=== PATIENT | male | born 1940 | race Caucasian/White ===

== ENCOUNTER 2020-09-11 08:50 | Emergency (ER) | payer OTHER, MEDICARE ==
[2020-09-11 09:04] VITALS: TEMP 98.3; BMI 25.8
[2020-09-11 11:04] VITALS: BP 128/64; PULSE 79
== END 2020-09-11 10:25 | disposition home or self-care (01) ==
LOC: FER 08:50
DX: R33.9 Retention of urine, unspecified (principal)
CPT/HCPCS: 81003; 81015; 87086; 87186; 99284-25

== ENCOUNTER 2020-09-15 04:43 | Emergency (ER) | payer OTHER, MEDICARE ==
[2020-09-15 04:49] VITALS: BP 143/67; PULSE 87; TEMP 98.2; BMI 25.1
== END 2020-09-15 05:39 | disposition home or self-care (01) ==
LOC: FER 04:43
DX: T83.018A Breakdown (mechanical) of other urinary catheter, initial encounter (principal)
CPT/HCPCS: 99283-25

== ENCOUNTER 2021-03-07 09:12 | Day surgery (SDC) | payer OTHER, MEDICARE ==
[2021-03-06 16:18] VITALS: BMI 25.8
[2021-03-07] MEDS ORDERED: CYCLOPENTOLATE HCL 1% OPHTH SOLN 2 ML BOTTLE ONE (09:43)
[2021-03-07] MEDS ORDERED: OFLOXACIN 0.3% OPHTHALMIC SOLUTION 5 ML BOTTLE ONE (09:43)
[2021-03-07] MEDS ORDERED: TROPICAMIDE 1% OPHTH SOLN 15 ML BOTTLE ONE (09:43)
[2021-03-07] MEDS ORDERED: PHENYLEPHRINE 2.5% OPHTH SOLN 15 ML BOTTLE ONE (09:43)
[2021-03-07] MEDS ORDERED: KETOROLAC TROMETHAMINE 0.5% EYE DROP 1 DROP DROPS ONE (09:43)
[2021-03-07] MEDS: CYCLOPENTOLATE HCL 1% OPHTH SOLN 2 ML BOTTLE OS SCH ×3 (10:10→10:20)
[2021-03-07] MEDS: KETOROLAC TROMETHAMINE 0.5% EYE DROP 1 DROP DROPS OS SCH ×3 (10:10→10:20)
[2021-03-07] MEDS: PHENYLEPHRINE 2.5% OPHTH SOLN 15 ML BOTTLE OS SCH ×3 (10:10→10:20)
[2021-03-07] MEDS: OFLOXACIN 0.3% OPHTHALMIC SOLUTION 5 ML BOTTLE OS SCH ×3 (10:10→10:20)
[2021-03-07] MEDS: TROPICAMIDE 1% OPHTH SOLN 15 ML BOTTLE OS SCH ×3 (10:10→10:20)
[2021-03-07] MEDS ORDERED: ACETAMINOPHEN 325 MG TABLET (FP) PO PRN (11:16)
[2021-03-07] MEDS ORDERED: BETAXOLOL HCL 0.25% OPHTHALMIC 10 ML DROPSBTL ONE (11:25)
[2021-03-07] MEDS ORDERED: BACITRACIN/POLYMYXIN OPH OINT 3.5 GM TUBE ONE (11:25)
[2021-03-07] MEDS ORDERED: TETRACAINE 0.5% OPHTH SOLN 2 ML BOTTLE ONE (11:25)
[2021-03-07] MEDS ORDERED: POVIDONE-IODINE 5% OPHTHALMIC PREP 30 ML SOLUTION ONE (11:25)
[2021-03-07] MEDS ORDERED: NEO/POLYMYX B SULF/DEXAMETH OPHTHALMIC 5ML BOTTLE ONE (11:25)
[2021-03-07] MEDS ORDERED: EPI-SHUGARCAINE (EPINEPHRINE 0.025% & LIDOCAINE-PF 0.75%) 4ML ONE (11:25)
[2021-03-07] MEDS ORDERED: PHENYLEPHRINE/KETOROLAC 4 ML VIAL IO ONE (11:27)
[2021-03-07] MEDS ORDERED: ACETAMINOPHEN INJECTION 100 ML IVPB ONE (11:30)
[2021-03-08 11:32] VITALS: TEMP 98
[2021-03-08 11:39] VITALS: BP 132/71; PULSE 83
== END 2021-03-07 13:25 | disposition home or self-care (01) ==
LOC: FASU 09:12
PROVIDERS: ATTEND Ophthalmology
PROC: 08RK3JZ Replacement of Left Lens with Synthetic Substitute, Percutaneous Approach (ICD-10-PCS; principal; 2021-03-07 11:53)
DX: H26.9 Unspecified cataract (principal)
CPT/HCPCS: J0131; J1097

== ENCOUNTER 2021-09-15 14:47 | Inpatient (IN) | payer OTHER, MEDICARE ==
[2021-09-15 15:13] VITALS: BMI 23.1
[2021-09-15] MEDS ORDERED: SODIUM CHLORIDE 0.9% 1000 ML INFUS.BAG IV ONE ×2 (15:58→17:08)
[2021-09-15] MEDS ORDERED: PIPERACILLIN/TAZOB 4.5 GM 4.5 GM in DEXTROSE 5%-WATER 100 ML IVPB ONE (16:16)
[2021-09-15] MEDS ORDERED: VANCOMYCIN 1 GM in D5W (PRE-DOCKED) 1,000 MG/250 ML IVPB ONE (16:16)
[2021-09-15] MEDS ORDERED: VANCOMYCIN 1 GRAM (PRE-DOCKED) 1,000 MG/250 ML BAG IVPB ONE ×2 (16:18→16:45)
[2021-09-15] MEDS ORDERED: PIPERACILLIN/TAZOB 4.5 GM 4.5 GM/100 ML BAG IVPB ONE (16:18)
[2021-09-15 16:20] LABS: EPI CELLS 0 /uL (0-25.1); HYALINE CASTS 1 /uL (0-3.1); URINE APPEARANCE TURBID; URINE BACTERIA 3549 /uL (0-1359); URINE BILIRUBIN NEGATIVE (NEGATIVE); URINE COLOR ORANGE; URINE GLUCOSE (UA) NEGATIVE (NEGATIVE); URINE KETONE NEGATIVE (NEGATIVE); URINE LEUK ESTERASE 3+ (NEGATIVE); URINE NITRITE NEGATIVE (NEGATIVE); URINE PROTEIN 3+ (NEGATIVE); URINE RBC 1570 /uL (0-23.9); URINE UROBILINOGEN 0.2 mg/dL (0.2-1.0); URINE WBC 1673 /uL (0-25.8)
[2021-09-15 16:28] LABS: VENOUS BASE EXCESS -7.6 mmol/L (-2-2); VENOUS O2 SATURATION 39.5 % (70-80); VENOUS PCO2 35.8 mmHg (38-52); VENOUS PH 7.312 (7.310-7.410)
[2021-09-15 16:29] LABS: BASO % 0.1 % (0-2.0); HEMATOCRIT 42.6 % (35.4-49); HEMOGLOBIN 14.1 GM/dL (11.7-16.9); LYMPH % 4.9 % (8-40); MCH 31.2 pg (25.7-33.7); MEAN CELL VOLUME 94.3 fl (80-96); MEAN PLT VOLUME 10.1 fl (7.5-11.1); MONO % 10.9 % (3.8-10.2); NEUT % 84.1 % (42.8-82.8); PLATELET COUNT 146 10^3/uL (134-434); RBC 4.52 M/mm3 (4.00-5.60); RDW 14.8 % (11.9-15.9); WHITE BLOOD COUNT 11.8 K/mm3 (4.0-10.0)
[2021-09-15 16:39] LABS: INR 1.13 (0.83-1.09)
[2021-09-15 16:42] LABS: ACTIVATED PTT 26.4 SECONDS (25.2-36.5)
[2021-09-15 16:56] LABS: CHLORIDE 108 mmol/L (98-107); SODIUM 140 mmol/L (136-145)
[2021-09-15 16:58] LABS: ALBUMIN 2.8 g/dl (3.4-5.0); GLUCOSE,RANDOM 171 mg/dL (74-106)
[2021-09-15 16:59] LABS: ANION GAP 14 MMOL/L (8-16); CALCIUM 8.8 mg/dL (8.5-10.1); CO2 18 mmol/L (21-32)
[2021-09-15 17:02] LABS: SGOT/AST 7 U/L (15-37)
[2021-09-15 17:03] LABS: CREATININE 5.8 mg/dL (0.55-1.3)
[2021-09-15 17:04] LABS: BILIRUBIN,TOTAL 0.7 mg/dL (0.2-1); TOT PROT 6.2 g/dl (6.4-8.2)
[2021-09-15 17:05] LABS: ALK PHOS 74 U/L (45-117)
[2021-09-15 17:06] LABS: LACTIC ACID 3.4 mmol/L (0.4-2.0)
[2021-09-15 17:11] LABS: BLOOD UREA NITROGEN 112.9 mg/dL (7-18); SGPT/ALT 18 U/L (13-61)
[2021-09-15 18:45] LABS: CHLORIDE 110 mmol/L (98-107); SODIUM 140 mmol/L (136-145)
[2021-09-15 18:46] LABS: ANION GAP 13 MMOL/L (8-16); CALCIUM 7.9 mg/dL (8.5-10.1); CO2 17 mmol/L (21-32)
[2021-09-15 18:47] LABS: GLUCOSE,RANDOM 191 mg/dL (74-106)
[2021-09-15 18:50] LABS: CREATININE 5.1 mg/dL (0.55-1.3)
[2021-09-15 19:01] LABS: LACTIC ACID 2.6 mmol/L (0.4-2.0)
[2021-09-15] MEDS ORDERED: DEXTROSE 5%-NORMAL SALINE 1,000 ML IV SCH (21:15)
[2021-09-15] MEDS ORDERED: HEPARIN NA (PORCINE) 5,000 UNITS/ML 1ML VIAL ONE (22:09)
[2021-09-15] MEDS: HEPARIN NA (PORCINE) 5,000 UNITS/ML 1ML VIAL SQ SCH (22:25)
[2021-09-15] MEDS ORDERED: ACETAMINOPHEN 1000 MG/100 ML BAG IVPB ONE (22:40)
[2021-09-16] MEDS ORDERED: ACETAMINOPHEN INJECTION 100 ML IVPB ONE (00:14)
[2021-09-16] MEDS ORDERED: SODIUM CHLORIDE 500 ML IV STA (00:47)
[2021-09-16] MEDS ORDERED: PIPERACILLIN/TAZOB 2.25 GM 2.25 GM/50 ML BAG IVPB ONE ×3 (02:12→14:05)
[2021-09-16] MEDS: PIPERACILLIN/TAZOB 2.25 GM 2.25 GM in DEXTROSE 5%-WATER - 50 ML IVPB SCH ×3 (02:23→17:41)
[2021-09-16] MEDS ORDERED: HEPARIN NA (PORCINE) 5,000 UNITS/ML 1ML VIAL ONE ×2 (06:09→14:05)
[2021-09-16] MEDS: HEPARIN NA (PORCINE) 5,000 UNITS/ML 1ML VIAL SQ SCH ×3 (06:19→23:34)
[2021-09-16] MEDS: LACTATED RINGERS SOLUTION 1,000 ML/1,000 ML INFUS.BAG IV SCH ×2 (08:51→23:55)
[2021-09-16 12:40] LABS: BASO % 0.1 % (0-2.0); HEMATOCRIT 36.4 % (35.4-49); HEMOGLOBIN 12.1 GM/dL (11.7-16.9); LYMPH % 6.8 % (8-40); MCH 31.7 pg (25.7-33.7); MCHC 33.3 g/dl (32.0-35.9); MEAN PLT VOLUME 10.2 fl (7.5-11.1); MONO % 7.2 % (3.8-10.2); NEUT % 85.9 % (42.8-82.8); PLATELET COUNT 88 10^3/uL (134-434); RBC 3.83 M/mm3 (4.00-5.60); RDW 14.5 % (11.9-15.9); WHITE BLOOD COUNT 11.6 K/mm3 (4.0-10.0)
[2021-09-16 13:00] LABS: BLOOD UREA NITROGEN 90.7 mg/dL (7-18)
[2021-09-16 13:02] LABS: CALCIUM 8.2 mg/dL (8.5-10.1)
[2021-09-16 13:03] LABS: MAGNESIUM 2.7 mg/dL (1.8-2.4)
[2021-09-16 13:07] LABS: PHOSPHOROUS 3.5 mg/dL (2.5-4.9)
[2021-09-17] MEDS ORDERED: DEXTROSE 5%-WATER - 50 ML IVPB ONE ×4 (03:31→17:50)
[2021-09-17] MEDS ORDERED: PIPERACILLIN/TAZOBACTAM 2.25 GM VIAL IVPB ONE ×3 (03:31→14:14)
[2021-09-17] MEDS: PIPERACILLIN/TAZOB 2.25 GM 2.25 GM in DEXTROSE 5%-WATER - 50 ML IVPB SCH ×2 (03:46→09:35)
[2021-09-17] MEDS: HEPARIN NA (PORCINE) 5,000 UNITS/ML 1ML VIAL SQ SCH ×3 (06:52→23:00)
[2021-09-17 08:32] LABS: EOS % 0.1 % (0-4.5); HEMATOCRIT 34.4 % (35.4-49); HEMOGLOBIN 11.8 GM/dL (11.7-16.9); LYMPH % 6.3 % (8-40); MCH 32.1 pg (25.7-33.7); MCHC 34.4 g/dl (32.0-35.9); MEAN CELL VOLUME 93.4 fl (80-96); MEAN PLT VOLUME 9.9 fl (7.5-11.1); MONO % 6.9 % (3.8-10.2); NEUT % 86.7 % (42.8-82.8); PLATELET COUNT 81 10^3/uL (134-434); RBC 3.68 M/mm3 (4.00-5.60); RDW 14.6 % (11.9-15.9); WHITE BLOOD COUNT 7.2 K/mm3 (4.0-10.0)
[2021-09-17 08:55] LABS: BLOOD UREA NITROGEN 73.7 mg/dL (7-18); CALCIUM 7.9 mg/dL (8.5-10.1); MAGNESIUM 2.6 mg/dL (1.8-2.4)
[2021-09-17 08:58] LABS: CREATININE 1.6 mg/dL (0.55-1.3); PHOSPHOROUS 2.8 mg/dL (2.5-4.9)
[2021-09-17 08:59] LABS: BILIRUBIN,TOTAL 0.8 mg/dL (0.2-1)
[2021-09-17 09:00] LABS: TOT PROT 4.8 g/dl (6.4-8.2)
[2021-09-17] MEDS: LACTATED RINGERS SOLUTION 1,000 ML/1,000 ML INFUS.BAG IV SCH (09:35)
[2021-09-17] MEDS ORDERED: VANCOMYCIN 1 GM in D5W (PRE-DOCKED) 1,000 MG/250 ML IVPB SCH (10:00)
[2021-09-17] MEDS ORDERED: POTASSIUM CHLORIDE TABS 20 MEQ TABLET.ER (FP) PO ONE (10:15)
[2021-09-17] MEDS: KCL 10 MEQ IVPB 10 MEQ/100 ML INFUS.BAG IVPB SCH ×3 (10:43→14:12)
[2021-09-17] MEDS: POTASSIUM CHLORIDE 20 MEQ in DEXTROSE 5%-WATER - 1,000 ML IV SCH (12:24)
[2021-09-17 13:33] LABS: CALCIUM 8.1 mg/dL (8.5-10.1)
[2021-09-17 13:34] LABS: BLOOD UREA NITROGEN 67.3 mg/dL (7-18)
[2021-09-17 13:38] LABS: CREATININE 1.5 mg/dL (0.55-1.3)
[2021-09-17] MEDS ORDERED: PIPERACILLIN/TAZOBACTAM 3.375 GM VIAL IVPB ONE (17:50)
[2021-09-17] MEDS: PIPERACILLIN/TAZOB 3.375 GM 3.375 GM in DEXTROSE 5%-WATER - 50 ML IVPB SCH (17:51)
[2021-09-18] MEDS ORDERED: PIPERACILLIN/TAZOBACTAM 3.375 GM VIAL IVPB ONE ×2 (01:04→08:57)
[2021-09-18] MEDS ORDERED: DEXTROSE 5%-WATER - 50 ML IVPB ONE ×2 (01:04→08:57)
[2021-09-18] MEDS: PIPERACILLIN/TAZOB 3.375 GM 3.375 GM in DEXTROSE 5%-WATER - 50 ML IVPB SCH ×2 (02:36→09:27)
[2021-09-18] MEDS: POTASSIUM CHLORIDE 20 MEQ in DEXTROSE 5%-WATER - 1,000 ML IV SCH ×3 (02:37→14:35)
[2021-09-18] MEDS: HEPARIN NA (PORCINE) 5,000 UNITS/ML 1ML VIAL SQ SCH ×3 (07:01→21:55)
[2021-09-18 09:08] LABS: HEMATOCRIT 38.1 % (35.4-49); HEMOGLOBIN 12.6 GM/dL (11.7-16.9); MCH 31.1 pg (25.7-33.7); MCHC 33.2 g/dl (32.0-35.9); MEAN CELL VOLUME 93.9 fl (80-96); PLATELET COUNT 92 10^3/uL (134-434); RBC 4.06 M/mm3 (4.00-5.60); RDW 14.6 % (11.9-15.9); WHITE BLOOD COUNT 8.6 K/mm3 (4.0-10.0)
[2021-09-18] MEDS: MULTIVITAMINS (DAILY MVI) TABLET (FP) PO SCH (09:27)
[2021-09-18 09:38] LABS: BLOOD UREA NITROGEN 56.3 mg/dL (7-18); CALCIUM 8.4 mg/dL (8.5-10.1)
[2021-09-18 09:39] LABS: ALBUMIN 2.2 g/dl (3.4-5.0); MAGNESIUM 2.7 mg/dL (1.8-2.4)
[2021-09-18 09:41] LABS: CREATININE 1.4 mg/dL (0.55-1.3); PHOSPHOROUS 1.9 mg/dL (2.5-4.9)
[2021-09-18 09:43] LABS: BILIRUBIN,TOTAL 0.7 mg/dL (0.2-1); TOT PROT 5.3 g/dl (6.4-8.2)
[2021-09-18] MEDS: POTASSIUM CHLORIDE 10 MEQ in DEXTROSE 5%-WATER - 1,000 ML IV SCH ×2 (14:34→22:38)
[2021-09-18] MEDS: NAPH,MB-DB/K PH,MBDB POWDER PACKET PO SCH ×2 (14:34→21:55)
[2021-09-18] MEDS ORDERED: CEFAZOLIN SODIUM 2 GM in DEXTROSE 5%-WATER - 50 ML IVPB SCH (18:00)
[2021-09-19] MEDS: POTASSIUM CHLORIDE 10 MEQ in DEXTROSE 5%-WATER - 1,000 ML IV SCH ×3 (01:37→17:58)
[2021-09-19] MEDS: CEFAZOLIN SODIUM 2 GM in DEXTROSE 5%-WATER - 50 ML IVPB SCH ×3 (01:38→17:27)
[2021-09-19] MEDS: HEPARIN NA (PORCINE) 5,000 UNITS/ML 1ML VIAL SQ SCH ×3 (05:16→21:16)
[2021-09-19] MEDS: NAPH,MB-DB/K PH,MBDB POWDER PACKET PO SCH ×3 (05:17→21:16)
[2021-09-19 08:37] LABS: HEMATOCRIT 37.8 % (35.4-49); HEMOGLOBIN 12.7 GM/dL (11.7-16.9); MCH 31.8 pg (25.7-33.7); MCHC 33.6 g/dl (32.0-35.9); MEAN CELL VOLUME 94.8 fl (80-96); MEAN PLT VOLUME 10.6 fl (7.5-11.1); PLATELET COUNT 87 10^3/uL (134-434); RBC 3.99 M/mm3 (4.00-5.60); RDW 14.4 % (11.9-15.9); WHITE BLOOD COUNT 9.3 K/mm3 (4.0-10.0)
[2021-09-19 09:02] LABS: ALBUMIN 2.2 g/dl (3.4-5.0); CALCIUM 7.9 mg/dL (8.5-10.1); MAGNESIUM 2.4 mg/dL (1.8-2.4)
[2021-09-19 09:03] LABS: BLOOD UREA NITROGEN 40.2 mg/dL (7-18)
[2021-09-19 09:04] LABS: PHOSPHOROUS 2.8 mg/dL (2.5-4.9)
[2021-09-19 09:05] LABS: CREATININE 1.1 mg/dL (0.55-1.3)
[2021-09-19 09:06] LABS: BILIRUBIN,TOTAL 0.5 mg/dL (0.2-1); TOT PROT 5.2 g/dl (6.4-8.2)
[2021-09-19] MEDS ORDERED: LOSARTAN POTASSIUM 50 MG TABLET PO SCH (10:00)
[2021-09-19] MEDS: MULTIVITAMINS (DAILY MVI) TABLET (FP) PO SCH (10:18)
[2021-09-20] MEDS: CEFAZOLIN SODIUM 2 GM in DEXTROSE 5%-WATER - 50 ML IVPB SCH ×3 (02:05→18:33)
[2021-09-20] MEDS: POTASSIUM CHLORIDE 10 MEQ in DEXTROSE 5%-WATER - 1,000 ML IV SCH ×2 (02:07→03:50)
[2021-09-20] MEDS: HEPARIN NA (PORCINE) 5,000 UNITS/ML 1ML VIAL SQ SCH ×3 (06:13→22:12)
[2021-09-20] MEDS: NAPH,MB-DB/K PH,MBDB POWDER PACKET PO SCH ×3 (06:13→22:12)
[2021-09-20] MEDS: MULTIVITAMINS (DAILY MVI) TABLET (FP) PO SCH (09:00)
[2021-09-20 13:11] LABS: HEMATOCRIT 40.4 % (35.4-49); HEMOGLOBIN 13.4 GM/dL (11.7-16.9); MCH 31.6 pg (25.7-33.7); MCHC 33.1 g/dl (32.0-35.9); MEAN CELL VOLUME 95.5 fl (80-96); MEAN PLT VOLUME 10.5 fl (7.5-11.1); PLATELET COUNT 109 10^3/uL (134-434); RBC 4.23 M/mm3 (4.00-5.60); RDW 14.8 % (11.9-15.9); WHITE BLOOD COUNT 10.8 K/mm3 (4.0-10.0)
[2021-09-20 13:35] LABS: BLOOD UREA NITROGEN 27.8 mg/dL (7-18); CALCIUM 8.3 mg/dL (8.5-10.1); MAGNESIUM 2.3 mg/dL (1.8-2.4)
[2021-09-20 13:39] LABS: CREATININE 0.9 mg/dL (0.55-1.3)
[2021-09-20 22:09] VITALS: BP 137/65; PULSE 98; TEMP 98.5
== END 2021-09-21 01:45 | DRG 871 ==
LOC: JER 14:47 → JERBED 16:51 → J7W 09-16 20:19
PROVIDERS: ADMIT Internal Medicine; ATTEND Internal Medicine
PROC: 0T2BX0Z Change Drainage Device in Bladder, External Approach (ICD-10-PCS; principal; 2021-09-15)
DX: A41.89 Other specified sepsis (principal); G93.41 Metabolic encephalopathy; N17.9 Acute kidney failure, unspecified; E87.2 Acidosis; E87.0 Hyperosmolality and hypernatremia; N39.0 Urinary tract infection, site not specified; F03.90 Unspecified dementia, unspecified severity, without behavioral disturbance, psychotic disturbance, mood disturbance, and anxiety; I10 Essential (primary) hypertension; E87.8 Other disorders of electrolyte and fluid balance, not elsewhere classified; R33.9 Retention of urine, unspecified; N40.0 Benign prostatic hyperplasia without lower urinary tract symptoms; R00.0 Tachycardia, unspecified; N31.2 Flaccid neuropathic bladder, not elsewhere classified; E87.6 Hypokalemia; E83.39 Other disorders of phosphorus metabolism; B96.4 Proteus (mirabilis) (morganii) as the cause of diseases classified elsewhere; N31.8 Other neuromuscular dysfunction of bladder; Z96.652 Presence of left artificial knee joint; T83.091A Other mechanical complication of indwelling urethral catheter, initial encounter; Y84.8 Other medical procedures as the cause of abnormal reaction of the patient, or of later complication, without mention of misadventure at the time of the procedure
CPT/HCPCS: 0241U-QW; 36415; 70450-TC; 71045-TC-FY; 74230-TC-FY; 80048; 80053; 81003; 82550; 82553; 82803; 82962; 83036; 83605; 83735; 83935; 84100; 84484; 85025; 85027; 85610; 85730; 86850; 86900; 86901; 87040; 87086; 87186; 92611-GN; 93005; 93010; 99291; J1644

== ENCOUNTER 2022-03-01 02:46 | Inpatient (IN) | payer OTHER, MEDICARE ==
[2022-03-01] MEDS ORDERED: LIDOCAINE HCL 2% JELLY (5 ML/TUBE) ONE (03:02)
[2022-03-01] MEDS ORDERED: LIDOCAINE HCL 2% JELLY 6 ML TP ONE (03:03)
[2022-03-01 03:26] VITALS: BMI 22.1
[2022-03-01 04:31] LABS: EPI CELLS 5 /uL (0-25.1); HYALINE CASTS 5 /uL (0-3.1); PH,URINE >= 9.0 (5.0-8.0); URINE APPEARANCE TURBID; URINE BACTERIA 3567 /uL (0-1359); URINE BILIRUBIN NEGATIVE (NEGATIVE); URINE COLOR RED; URINE GLUCOSE (UA) NEGATIVE (NEGATIVE); URINE KETONE NEGATIVE (NEGATIVE); URINE LEUK ESTERASE 3+ (NEGATIVE); URINE NITRITE POSITIVE (NEGATIVE); URINE PROTEIN 3+ (NEGATIVE); URINE RBC 9033 /uL (0-23.9); URINE UROBILINOGEN 0.2 mg/dL (0.2-1.0); URINE WBC 2186 /uL (0-25.8)
[2022-03-01] MEDS ORDERED: CEFTRIAXONE 1 GM in DEXTROSE 5%-WATER - 50 ML IVPB ONE (04:35)
[2022-03-01 04:39] LABS: HEMATOCRIT 46.3 % (35.4-49); HEMOGLOBIN 15.2 GM/dL (11.7-16.9); MCH 30.4 pg (25.7-33.7); MCHC 32.8 g/dl (32.0-35.9); MEAN CELL VOLUME 92.4 fl (80-96); MEAN PLT VOLUME 10.6 fl (7.5-11.1); PLATELET COUNT 254 10^3/uL (134-434); RBC 5.01 M/mm3 (4.00-5.60); RDW 14.5 % (11.9-15.9); WHITE BLOOD COUNT 29.6 K/mm3 (4.0-10.0)
[2022-03-01 04:47] LABS: ALBUMIN 2.9 g/dl (3.4-5.0); BLOOD UREA NITROGEN 70.8 mg/dL (7-18); CALCIUM 9.3 mg/dL (8.5-10.1)
[2022-03-01 04:50] LABS: CREATININE 1.7 mg/dL (0.55-1.3)
[2022-03-01 04:52] LABS: BILIRUBIN,TOTAL 0.6 mg/dL (0.2-1); TOT PROT 6.5 g/dl (6.4-8.2)
[2022-03-01] MEDS ORDERED: CEFTRIAXONE 1 GM/50 ML BAG ONE (04:54)
[2022-03-01] MEDS ORDERED: LACTATED RINGERS SOLUTION 1000 ML INFUS.BAG IV ONE (05:05)
[2022-03-01] MEDS ORDERED: ACETAMINOPHEN 1000 MG/100 ML BAG IVPB ONE (05:34)
[2022-03-01] MEDS ORDERED: ACETAMINOPHEN INJECTION 100 ML IVPB ONE (05:56)
[2022-03-01 08:44] LABS: ANISOCYTOSIS 0; HELMET CELLS 0; HOWELL-JOLLY BODIES 0; MACROCYTOSIS 0; OVALOCYTE 0; ROULEAU 0; SICKELED CELLS 0; TARGET CELLS 0; TEAR DROP CELLS 0; TOXIC GRANULATION 0
[2022-03-01] MEDS ORDERED: PIPERACILLIN/TAZOB 2.25 GM 2.25 GM in DEXTROSE 5%-WATER - 50 ML IVPB SCH (10:45)
[2022-03-01] MEDS ORDERED: ACETAMINOPHEN 1000 MG/100 ML BAG IVPB PRN (14:37)
[2022-03-01] MEDS ORDERED: PIPERACILLIN/TAZOB 2.25 GM 2.25 GM/50 ML BAG IVPB ONE (14:50)
[2022-03-01] MEDS: DEXTROSE 5%-NORMAL SALINE 1,000 ML IV SCH (15:31)
[2022-03-01] MEDS: PIPERACILLIN/TAZOB 2.25 GM 2.25 GM in DEXTROSE 5%-WATER - 50 ML IVPB SCH (21:40)
[2022-03-02] MEDS: PIPERACILLIN/TAZOB 2.25 GM 2.25 GM in DEXTROSE 5%-WATER - 50 ML IVPB SCH ×5 (02:43→21:36)
[2022-03-02] MEDS ORDERED: BISACODYL 5 MG TABLET.DR (FP) PO ONE (09:55)
[2022-03-02] MEDS ORDERED: PNEUMOC 20-VAL CONJ-DIP CRM/PF 0.5 ML SYRINGE IM ONE (11:00)
[2022-03-02] MEDS: HEPARIN NA (PORCINE) 5,000 UNITS/ML 1ML VIAL SQ SCH ×2 (12:26→21:37)
[2022-03-02] MEDS: DEXTROSE 5%-NORMAL SALINE 1,000 ML IV SCH (12:28)
[2022-03-02] MEDS: DOCUSATE SODIUM 100 MG CAPSULE (FP) PO SCH ×2 (14:55→21:37)
[2022-03-03] MEDS: PIPERACILLIN/TAZOB 2.25 GM 2.25 GM in DEXTROSE 5%-WATER - 50 ML IVPB SCH ×3 (02:00→09:57)
[2022-03-03] MEDS: DOCUSATE SODIUM 100 MG CAPSULE (FP) PO SCH ×3 (05:18→22:25)
[2022-03-03] MEDS: DEXTROSE 5%-NORMAL SALINE 1,000 ML IV SCH ×3 (05:57→16:36)
[2022-03-03] MEDS: HEPARIN NA (PORCINE) 5,000 UNITS/ML 1ML VIAL SQ SCH ×2 (09:56→22:25)
[2022-03-03 12:22] LABS: BASO % 0.2 % (0-2.0); EOS % 1.1 % (0-4.5); HEMATOCRIT 36.2 % (35.4-49); HEMOGLOBIN 11.8 GM/dL (11.7-16.9); LYMPH % 13.2 % (8-40); MCH 30.5 pg (25.7-33.7); MCHC 32.6 g/dl (32.0-35.9); MEAN CELL VOLUME 93.4 fl (80-96); MEAN PLT VOLUME 9.9 fl (7.5-11.1); MONO % 8.2 % (3.8-10.2); NEUT % 77.3 % (42.8-82.8); PLATELET COUNT 139 10^3/uL (134-434); RBC 3.88 M/mm3 (4.00-5.60); RDW 14.2 % (11.9-15.9); WHITE BLOOD COUNT 6.8 K/mm3 (4.0-10.0)
[2022-03-03 12:42] LABS: CHLORIDE 123 mmol/L (98-107); SODIUM 156 mmol/L (136-145)
[2022-03-03 12:45] LABS: CALCIUM 8.3 mg/dL (8.5-10.1)
[2022-03-03 12:47] LABS: CO2 25 mmol/L (21-32); GLUCOSE,RANDOM 126 mg/dL (74-106)
[2022-03-03 12:49] LABS: CREATININE 0.8 mg/dL (0.55-1.3)
[2022-03-03 13:16] LABS: ANION GAP 8 MMOL/L (8-16)
[2022-03-03] MEDS: KCL 10 MEQ IVPB 10 MEQ/100 ML INFUS.BAG IVPB SCH ×3 (13:39→16:00)
[2022-03-03] MEDS: CEFTRIAXONE 2 GM in DEXTROSE 5%-WATER 100 ML IVPB SCH (15:02)
[2022-03-03 15:03] LABS: MAGNESIUM 2.5 mg/dL (1.8-2.4)
[2022-03-04] MEDS: DOCUSATE SODIUM 100 MG CAPSULE (FP) PO SCH ×3 (06:04→21:48)
[2022-03-04] MEDS: HEPARIN NA (PORCINE) 5,000 UNITS/ML 1ML VIAL SQ SCH ×2 (09:46→21:48)
[2022-03-04] MEDS: CEFTRIAXONE 2 GM in DEXTROSE 5%-WATER 100 ML IVPB SCH (09:47)
[2022-03-04 14:37] LABS: CALCIUM 8.1 mg/dL (8.5-10.1)
[2022-03-04 14:41] LABS: BLOOD UREA NITROGEN 20.8 mg/dL (7-18); CREATININE 0.7 mg/dL (0.55-1.3)
[2022-03-04] MEDS: AMINO ACIDS/PROTEIN HYDROLYS 30 ML LIQUID.PKT PO SCH (17:15)
[2022-03-04] MEDS: DEXTROSE 5%-NORMAL SALINE 1,000 ML IV SCH (17:15)
[2022-03-05] MEDS: DOCUSATE SODIUM 100 MG CAPSULE (FP) PO SCH ×3 (05:38→22:37)
[2022-03-05] MEDS: DEXTROSE 5%-NORMAL SALINE 1,000 ML IV SCH (05:40)
[2022-03-05] MEDS: DEXTROSE 5%-WATER - 1,000 ML IV SCH (09:33)
[2022-03-05] MEDS: AMINO ACIDS/PROTEIN HYDROLYS 30 ML LIQUID.PKT PO SCH ×2 (09:34→17:17)
[2022-03-05] MEDS: HEPARIN NA (PORCINE) 5,000 UNITS/ML 1ML VIAL SQ SCH ×2 (09:35→22:37)
[2022-03-05] MEDS: CEFTRIAXONE 2 GM in DEXTROSE 5%-WATER 100 ML IVPB SCH (11:48)
[2022-03-05] MEDS ORDERED: POTASSIUM CHLORIDE TABS 20 MEQ TABLET.ER (FP) PO SCH (14:45)
[2022-03-05 19:57] LABS: CHLORIDE 122 mmol/L (98-107); SODIUM 154 mmol/L (136-145)
[2022-03-05 19:58] LABS: CALCIUM 7.8 mg/dL (8.5-10.1)
[2022-03-05 19:59] LABS: BLOOD UREA NITROGEN 18.3 mg/dL (7-18); CO2 26 mmol/L (21-32); GLUCOSE,RANDOM 146 mg/dL (74-106)
[2022-03-05 20:02] LABS: CREATININE 0.7 mg/dL (0.55-1.3)
[2022-03-05 20:13] LABS: ANION GAP 6 MMOL/L (8-16)
[2022-03-05] MEDS: KCL 10 MEQ IVPB 10 MEQ/100 ML INFUS.BAG IVPB SCH ×2 (22:00→23:00)
[2022-03-06] MEDS: KCL 10 MEQ IVPB 10 MEQ/100 ML INFUS.BAG IVPB SCH
[2022-03-06] MEDS: DOCUSATE SODIUM 100 MG CAPSULE (FP) PO SCH ×3 (06:05→21:22)
[2022-03-06] MEDS: DEXTROSE 5%-WATER - 1,000 ML IV SCH ×4 (06:05→17:02)
[2022-03-06] MEDS ORDERED: KCL 10 MEQ IVPB 10 MEQ/100 ML INFUS.BAG IVPB SCH (08:15)
[2022-03-06] MEDS: AMINO ACIDS/PROTEIN HYDROLYS 30 ML LIQUID.PKT PO SCH ×2 (09:09→17:03)
[2022-03-06] MEDS: HEPARIN NA (PORCINE) 5,000 UNITS/ML 1ML VIAL SQ SCH ×2 (09:09→21:21)
[2022-03-06] MEDS: CEFTRIAXONE 2 GM in DEXTROSE 5%-WATER 100 ML IVPB SCH (09:09)
[2022-03-06 09:54] LABS: HEMATOCRIT 38.8 % (35.4-49); HEMOGLOBIN 12.9 GM/dL (11.7-16.9); MCHC 33.1 g/dl (32.0-35.9); MEAN CELL VOLUME 93.6 fl (80-96); MEAN PLT VOLUME 9.7 fl (7.5-11.1); PLATELET COUNT 126 10^3/uL (134-434); RBC 4.15 M/mm3 (4.00-5.60); RDW 14.1 % (11.9-15.9); WHITE BLOOD COUNT 6.9 K/mm3 (4.0-10.0)
[2022-03-06] MEDS ORDERED: POTASSIUM CHLORIDE TABS 20 MEQ TABLET.ER (FP) PO SCH (10:00)
[2022-03-06 10:13] LABS: BLOOD UREA NITROGEN 16.1 mg/dL (7-18); MAGNESIUM 2.3 mg/dL (1.8-2.4)
[2022-03-06 10:16] LABS: CREATININE 0.6 mg/dL (0.55-1.3)
[2022-03-06] MEDS ORDERED: COLLAGENASE CLOSTRIDIUM HIST. 30 GRAMS TUBE TP SCH (15:45)
[2022-03-07] MEDS: DEXTROSE 5%-WATER - 1,000 ML IV SCH (05:00)
[2022-03-07] MEDS: DOCUSATE SODIUM 100 MG CAPSULE (FP) PO SCH ×3 (05:48→21:13)
[2022-03-07] MEDS: AMINO ACIDS/PROTEIN HYDROLYS 30 ML LIQUID.PKT PO SCH ×2 (09:01→17:23)
[2022-03-07] MEDS: POTASSIUM CHLORIDE TABS 20 MEQ TABLET.ER (FP) PO SCH ×3 (09:02→18:40)
[2022-03-07] MEDS: CEFTRIAXONE 2 GM in DEXTROSE 5%-WATER 100 ML IVPB SCH (09:02)
[2022-03-07] MEDS: HEPARIN NA (PORCINE) 5,000 UNITS/ML 1ML VIAL SQ SCH ×2 (09:02→21:12)
[2022-03-07 11:53] LABS: HEMOGLOBIN 12.9 GM/dL (11.7-16.9); MCH 30.8 pg (25.7-33.7); MCHC 33.1 g/dl (32.0-35.9); MEAN CELL VOLUME 93.1 fl (80-96); MEAN PLT VOLUME 9.9 fl (7.5-11.1); PLATELET COUNT 152 10^3/uL (134-434); RDW 13.7 % (11.9-15.9)
[2022-03-07 12:16] LABS: CHLORIDE 112 mmol/L (98-107); SODIUM 148 mmol/L (136-145)
[2022-03-07 12:34] LABS: BLOOD UREA NITROGEN 16.5 mg/dL (7-18); CALCIUM 8.2 mg/dL (8.5-10.1); GLUCOSE,RANDOM 113 mg/dL (74-106)
[2022-03-07 12:35] LABS: CO2 28 mmol/L (21-32)
[2022-03-07 12:37] LABS: CREATININE 0.6 mg/dL (0.55-1.3)
[2022-03-07 12:38] LABS: ANION GAP 9 MMOL/L (8-16)
[2022-03-07] MEDS ORDERED: DEXTROSE 5%-WATER - 1,000 ML IV SCH (13:48)
[2022-03-07] MEDS ORDERED: POTASSIUM CHLORIDE TABS 20 MEQ TABLET.ER (FP) PO SCH (14:45)
[2022-03-07] MEDS: KCL 10 MEQ IVPB 10 MEQ/100 ML INFUS.BAG IVPB SCH ×2 (14:51→15:55)
[2022-03-08] MEDS: DOCUSATE SODIUM 100 MG CAPSULE (FP) PO SCH ×3 (07:14→21:36)
[2022-03-08] MEDS: AMINO ACIDS/PROTEIN HYDROLYS 30 ML LIQUID.PKT PO SCH ×2 (09:00→16:33)
[2022-03-08] MEDS: CEFTRIAXONE 2 GM in DEXTROSE 5%-WATER 100 ML IVPB SCH (10:00)
[2022-03-08] MEDS: HEPARIN NA (PORCINE) 5,000 UNITS/ML 1ML VIAL SQ SCH ×2 (10:00→21:36)
[2022-03-08] MEDS: POTASSIUM CHLORIDE TABS 20 MEQ TABLET.ER (FP) PO SCH (10:06)
[2022-03-08 12:19] LABS: HEMATOCRIT 41.3 % (35.4-49); HEMOGLOBIN 13.3 GM/dL (11.7-16.9); MCH 29.7 pg (25.7-33.7); MCHC 32.3 g/dl (32.0-35.9); MEAN CELL VOLUME 92.1 fl (80-96); MEAN PLT VOLUME 10.1 fl (7.5-11.1); PLATELET COUNT 164 10^3/uL (134-434); RBC 4.48 M/mm3 (4.00-5.60); RDW 13.7 % (11.9-15.9); WHITE BLOOD COUNT 5.7 K/mm3 (4.0-10.0)
[2022-03-08 13:53] LABS: CALCIUM 8.2 mg/dL (8.5-10.1)
[2022-03-08 13:54] LABS: BLOOD UREA NITROGEN 14.6 mg/dL (7-18)
[2022-03-08 14:05] LABS: CREATININE 0.5 mg/dL (0.55-1.3)
[2022-03-09] MEDS: DOCUSATE SODIUM 100 MG CAPSULE (FP) PO SCH ×3 (06:09→22:18)
[2022-03-09] MEDS: AMINO ACIDS/PROTEIN HYDROLYS 30 ML LIQUID.PKT PO SCH ×2 (09:52→18:06)
[2022-03-09] MEDS: HEPARIN NA (PORCINE) 5,000 UNITS/ML 1ML VIAL SQ SCH ×2 (09:52→22:18)
[2022-03-09] MEDS: CEFTRIAXONE 2 GM in DEXTROSE 5%-WATER 100 ML IVPB SCH ×2 (09:52→11:56)
[2022-03-09] MEDS: CEPHALEXIN MONOHYDRATE 500 MG CAPSULE (UD) PO SCH ×2 (11:58→22:18)
[2022-03-10] MEDS: DOCUSATE SODIUM 100 MG CAPSULE (FP) PO SCH ×2 (05:38→13:12)
[2022-03-10] MEDS: HEPARIN NA (PORCINE) 5,000 UNITS/ML 1ML VIAL SQ SCH (09:24)
[2022-03-10] MEDS: CEPHALEXIN MONOHYDRATE 500 MG CAPSULE (UD) PO SCH (09:24)
[2022-03-10] MEDS: AMINO ACIDS/PROTEIN HYDROLYS 30 ML LIQUID.PKT PO SCH ×2 (09:25→17:06)
[2022-03-10 12:54] VITALS: RESP 16
[2022-03-10 17:59] VITALS: BP 122/68; PULSE 85; TEMP 97.9
== END 2022-03-10 19:07 | disposition home or self-care (01) | DRG 698 ==
LOC: JER 02:46 → JERBED 05:36 → J6S 17:59
PROVIDERS: ADMIT Internal Medicine; ATTEND Internal Medicine
DX: T83.511A Infection and inflammatory reaction due to indwelling urethral catheter, initial encounter (principal); A41.51 Sepsis due to Escherichia coli [E. coli]; L89.154 Pressure ulcer of sacral region, stage 4; G93.41 Metabolic encephalopathy; N13.6 Pyonephrosis; E87.0 Hyperosmolality and hypernatremia; N17.9 Acute kidney failure, unspecified; R64 Cachexia; I10 Essential (primary) hypertension; R00.0 Tachycardia, unspecified; D72.829 Elevated white blood cell count, unspecified; F03.90 Unspecified dementia, unspecified severity, without behavioral disturbance, psychotic disturbance, mood disturbance, and anxiety; E87.6 Hypokalemia; N40.1 Benign prostatic hyperplasia with lower urinary tract symptoms; R33.8 Other retention of urine; R13.10 Dysphagia, unspecified; Y84.6 Urinary catheterization as the cause of abnormal reaction of the patient, or of later complication, without mention of misadventure at the time of the procedure; Y92.89 Other specified places as the place of occurrence of the external cause; K59.09 Other constipation; N31.9 Neuromuscular dysfunction of bladder, unspecified; Z96.652 Presence of left artificial knee joint; Z68.22 Body mass index [BMI] 22.0-22.9, adult; Z99.3 Dependence on wheelchair
CPT/HCPCS: 0241U-QW; 36415; 70450-TC; 74018-TC-FY; 74176-TC; 74230-TC-FY; 76856-TC; 80048; 80053; 81003; 83605; 83735; 85025; 85027; 87040; 87086; 87186; 92611-GN; 93005; 93010; 93306-TC; 97161-GP; 99285-25; C9803-CS; J1644; U0003; U0005

== ENCOUNTER 2022-05-06 14:56 | Emergency (ER) | payer OTHER, MEDICARE ==
[2022-05-06 15:54] VITALS: BP 139/76; PULSE 75; RESP 16; TEMP 98.3; BMI 19.0
[2022-05-06 16:28] LABS: BASO % 0.6 % (0-2.0); EOS % 2.4 % (0-4.5); HEMATOCRIT 42.8 % (35.4-49); LYMPH % 29.1 % (8-40); MCH 30.7 pg (25.7-33.7); MCHC 32.8 g/dl (32.0-35.9); MEAN CELL VOLUME 93.8 fl (80-96); MONO % 9.1 % (3.8-10.2); NEUT % 58.8 % (42.8-82.8); PLATELET COUNT 209 10^3/uL (134-434); RBC 4.56 M/mm3 (4.00-5.60); RDW 16.8 % (11.9-15.9)
[2022-05-06 16:53] LABS: CALCIUM 9.1 mg/dL (8.5-10.1)
[2022-05-06 16:54] LABS: ALBUMIN 3.2 g/dl (3.4-5.0); BLOOD UREA NITROGEN 20.3 mg/dL (7-18)
[2022-05-06 16:57] LABS: CREATININE 0.7 mg/dL (0.55-1.3)
[2022-05-06 16:59] LABS: BILIRUBIN,TOTAL 0.6 mg/dL (0.2-1)
[2022-05-06 18:58] LABS: EPI CELLS 1 /uL (0-25.1); HYALINE CASTS 0 /uL (0-3.1); URINE APPEARANCE CLOUDY; URINE BACTERIA 4847 /uL (0-1359); URINE BILIRUBIN NEGATIVE (NEGATIVE); URINE COLOR YELLOW; URINE GLUCOSE (UA) NEGATIVE (NEGATIVE); URINE KETONE NEGATIVE (NEGATIVE); URINE LEUK ESTERASE 3+ (NEGATIVE); URINE NITRITE POSITIVE (NEGATIVE); URINE PROTEIN TRACE (NEGATIVE); URINE RBC 24 /uL (0-23.9); URINE UROBILINOGEN 0.2 mg/dL (0.2-1.0); URINE WBC 986 /uL (0-25.8)
== END 2022-05-06 22:55 | disposition home or self-care (01) ==
LOC: JER 14:56
DX: T83.511A Infection and inflammatory reaction due to indwelling urethral catheter, initial encounter (principal); T83.022A Displacement of nephrostomy catheter, initial encounter
CPT/HCPCS: 36415; 80053; 81003; 85025; 87086; 87186; 99283-25

== ENCOUNTER 2022-06-19 14:38 | Inpatient (IN) | payer OTHER, MEDICARE ==
[2022-06-19 15:04] VITALS: BMI 20.3
[2022-06-19 16:57] LABS: BASO % 0.2 % (0-2.0); HEMATOCRIT 46.6 % (35.4-49); HEMOGLOBIN 15.7 GM/dL (11.7-16.9); LYMPH % 6.3 % (8-40); MCH 31.7 pg (25.7-33.7); MCHC 33.6 g/dl (32.0-35.9); MEAN CELL VOLUME 94.3 fl (80-96); MEAN PLT VOLUME 9.9 fl (7.5-11.1); MONO % 6.5 % (3.8-10.2); PLATELET COUNT 225 10^3/uL (134-434); RBC 4.94 M/mm3 (4.00-5.60); RDW 15.1 % (11.9-15.9); WHITE BLOOD COUNT 11.8 K/mm3 (4.0-10.0)
[2022-06-19 17:07] LABS: INR 1.04 (0.83-1.09); PROTHROMBIN TIME (PATIENT) 12.1 SEC (9.7-13.0)
[2022-06-19 17:08] LABS: EPI CELLS 21 /uL (0-25.1); HYALINE CASTS 4 /uL (0-3.1); URINE APPEARANCE TURBID; URINE BACTERIA >9,000 /uL (0-1359); URINE BILIRUBIN NEGATIVE (NEGATIVE); URINE COLOR DK YELLOW; URINE GLUCOSE (UA) NEGATIVE (NEGATIVE); URINE KETONE TRACE (NEGATIVE); URINE LEUK ESTERASE 3+ (NEGATIVE); URINE NITRITE POSITIVE (NEGATIVE); URINE PROTEIN 3+ (NEGATIVE); URINE RBC 496 /uL (0-23.9); URINE WBC 1641 /uL (0-25.8)
[2022-06-19 17:10] LABS: ACTIVATED PTT 30.9 SECONDS (25.2-36.5)
[2022-06-19 17:17] LABS: ALBUMIN 3.5 g/dl (3.4-5.0); BLOOD UREA NITROGEN 30.7 mg/dL (7-18); CALCIUM 9.5 mg/dL (8.5-10.1)
[2022-06-19 17:20] LABS: CREATININE 0.9 mg/dL (0.55-1.3)
[2022-06-19 17:22] LABS: BILIRUBIN,TOTAL 0.7 mg/dL (0.2-1)
[2022-06-19] MEDS ORDERED: POTASSIUM CHLORIDE ORAL LIQUID 20 MEQ/15 ML PO ONE (17:30)
[2022-06-19] MEDS ORDERED: SODIUM CHLORIDE 0.9% 500 ML INFUS.BAG IV ONE (17:33)
[2022-06-19] MEDS ORDERED: MIDAZOLAM HCL 2 MG/2 ML SINGLE DOSE VIAL IVPUSH ONE (18:04)
[2022-06-19] MEDS ORDERED: LIDOCAINE VISCOUS 2% ORAL/TOP 15 ML UNIT-DOSE CUP MM ONE (18:05)
[2022-06-19] MEDS ORDERED: MIDAZOLAM HCL 2 MG/2 ML SINGLE DOSE VIAL ONE (18:17)
[2022-06-19] MEDS ORDERED: CEFTRIAXONE 1,000 MG in DEXTROSE 5%-WATER - 50 ML IVPB ONE (19:02)
[2022-06-19] MEDS ORDERED: CEFTRIAXONE 1 GM/50 ML BAG ONE (20:18)
[2022-06-19] MEDS ORDERED: AZITHROMYCIN IVPB 500 MG in DEXTROSE 5%-WATER - 250 ML IVPB ONE (21:00)
[2022-06-19] MEDS ORDERED: AZITHROMYCIN IVPB 500 MG/250 ML BAG IVPB ONE (21:35)
[2022-06-19] MEDS ORDERED: ACETAMINOPHEN 1000 MG/100 ML BAG IVPB PRN (22:54)
[2022-06-20] MEDS ORDERED: KCL 10 MEQ IVPB 10 MEQ/100 ML INFUS.BAG IVPB ONE (01:11)
[2022-06-20] MEDS: LACTATED RINGERS SOLUTION 1,000 ML/1,000 ML INFUS.BAG IV SCH (01:53)
[2022-06-20] MEDS: KCL 10 MEQ IVPB 10 MEQ/100 ML INFUS.BAG IVPB SCH ×3 (01:54→03:53)
[2022-06-20] MEDS: AMPICILLIN NA/SULBACTAM NA 1.5 GM in SODIUM CHLORIDE 100 ML IVPB SCH ×4 (03:53→21:27)
[2022-06-20 05:57] LABS: EPI CELLS >36 /uL (0-25.1); HYALINE CASTS 8 /uL (0-3.1); URINE APPEARANCE TURBID; URINE BILIRUBIN NEGATIVE (NEGATIVE); URINE COLOR YELLOW; URINE GLUCOSE (UA) NEGATIVE (NEGATIVE); URINE KETONE NEGATIVE (NEGATIVE); URINE LEUK ESTERASE 3+ (NEGATIVE); URINE NITRITE POSITIVE (NEGATIVE); URINE PROTEIN 2+ (NEGATIVE); URINE WBC 9136 /uL (0-25.8)
[2022-06-20 06:52] LABS: HEMOGLOBIN 13.4 GM/dL (11.7-16.9); MCH 31.5 pg (25.7-33.7); MCHC 33.4 g/dl (32.0-35.9); MEAN CELL VOLUME 94.3 fl (80-96); MEAN PLT VOLUME 9.5 fl (7.5-11.1); PLATELET COUNT 196 10^3/uL (134-434); RBC 4.24 M/mm3 (4.00-5.60); RDW 14.7 % (11.9-15.9); WHITE BLOOD COUNT 13.1 K/mm3 (4.0-10.0)
[2022-06-20 07:21] LABS: CALCIUM 8.6 mg/dL (8.5-10.1)
[2022-06-20 07:22] LABS: BLOOD UREA NITROGEN 27.2 mg/dL (7-18); MAGNESIUM 2.2 mg/dL (1.8-2.4)
[2022-06-20 07:25] LABS: CREATININE 0.8 mg/dL (0.55-1.3); PHOSPHOROUS 2.7 mg/dL (2.5-4.9)
[2022-06-20 07:35] LABS: URINE BACTERIA 398.2 /uL (0-1359)
[2022-06-20] MEDS: SODIUM HYPOCHLORITE 0.25%- 473 ML BULK BOTTLE TP SCH (08:39)
[2022-06-20] MEDS ORDERED: ENOXAPARIN NA (PORCINE) 40 MG/0.4 ML DISP.SYRIN SQ ONE (10:07)
[2022-06-20] MEDS ORDERED: AMPICILLIN NA/SULBACTAM NA 1.5 GM VIAL ONE ×3 (10:07→20:36)
[2022-06-20] MEDS: ENOXAPARIN NA (PORCINE) 40 MG/0.4 ML DISP.SYRIN SQ SCH (10:19)
[2022-06-20 18:39] VITALS: RESP 18
[2022-06-21] MEDS: LACTATED RINGERS SOLUTION 1,000 ML/1,000 ML INFUS.BAG IV SCH (01:57)
[2022-06-21] MEDS: AMPICILLIN NA/SULBACTAM NA 1.5 GM in SODIUM CHLORIDE 100 ML IVPB SCH ×4 (03:46→21:39)
[2022-06-21] MEDS: SODIUM HYPOCHLORITE 0.25%- 473 ML BULK BOTTLE TP SCH (07:02)
[2022-06-21] MEDS ORDERED: DEXTROSE 5%-LACTATED RINGERS 1,000 ML IV SCH (08:15)
[2022-06-21] MEDS: ENOXAPARIN NA (PORCINE) 40 MG/0.4 ML DISP.SYRIN SQ SCH (09:22)
[2022-06-21 09:46] LABS: BASO % 0.4 % (0-2.0); EOS % 0.6 % (0-4.5); HEMATOCRIT 34.8 % (35.4-49); HEMOGLOBIN 12.1 GM/dL (11.7-16.9); LYMPH % 14.9 % (8-40); MCH 32.3 pg (25.7-33.7); MCHC 34.8 g/dl (32.0-35.9); MEAN CELL VOLUME 92.7 fl (80-96); MEAN PLT VOLUME 9.3 fl (7.5-11.1); MONO % 7.4 % (3.8-10.2); NEUT % 76.7 % (42.8-82.8); PLATELET COUNT 137 10^3/uL (134-434); RBC 3.75 M/mm3 (4.00-5.60); RDW 14.6 % (11.9-15.9); WHITE BLOOD COUNT 9.4 K/mm3 (4.0-10.0)
[2022-06-21 10:04] LABS: CHLORIDE 114 mmol/L (98-107); SODIUM 146 mmol/L (136-145)
[2022-06-21 10:13] LABS: BLOOD UREA NITROGEN 16.7 mg/dL (7-18); CO2 25 mmol/L (21-32); GLUCOSE,RANDOM 60 mg/dL (74-106); MAGNESIUM 2.1 mg/dL (1.8-2.4)
[2022-06-21 10:16] LABS: CREATININE 0.5 mg/dL (0.55-1.3); PHOSPHOROUS 2.8 mg/dL (2.5-4.9)
[2022-06-21 10:18] LABS: ANION GAP 8 MMOL/L (8-16)
[2022-06-21] MEDS: DEXTROSE 5%-0.45% SALINE 1,000 ML IV SCH (10:40)
[2022-06-21] MEDS: POTASSIUM CHLORIDE ORAL LIQUID 20 MEQ/15 ML PO SCH ×2 (13:00→21:39)
[2022-06-21] MEDS: AMINO ACIDS/PROTEIN HYDROLYS 30 ML LIQUID.PKT PO SCH (17:36)
[2022-06-21] MEDS ORDERED: SODIUM PHOSPHATE/NA BIPHOS 133 ML ENEMA RC ONE (18:21)
[2022-06-21] MEDS: POLYETHYLENE GLYCOL (HEALTHYLAX) 3350 17 GM PACKET PO SCH (21:39)
[2022-06-21] MEDS: ASCORBIC ACID 250 MG TABLET (FP) PO SCH (21:40)
[2022-06-22] MEDS: AMPICILLIN NA/SULBACTAM NA 1.5 GM in SODIUM CHLORIDE 100 ML IVPB SCH ×4 (02:32→22:23)
[2022-06-22 08:37] LABS: BASO % 0.5 % (0-2.0); HEMATOCRIT 32.4 % (35.4-49); HEMOGLOBIN 11.3 GM/dL (11.7-16.9); LYMPH % 30.7 % (8-40); MCH 32.5 pg (25.7-33.7); MONO % 8.7 % (3.8-10.2); NEUT % 58.1 % (42.8-82.8); PLATELET COUNT 118 10^3/uL (134-434); RBC 3.49 M/mm3 (4.00-5.60); RDW 14.4 % (11.9-15.9); WHITE BLOOD COUNT 6.7 K/mm3 (4.0-10.0)
[2022-06-22 09:02] LABS: CALCIUM 7.7 mg/dL (8.5-10.1)
[2022-06-22 09:03] LABS: BLOOD UREA NITROGEN 12.7 mg/dL (7-18)
[2022-06-22 09:06] LABS: CREATININE 0.5 mg/dL (0.55-1.3); PHOSPHOROUS 2.2 mg/dL (2.5-4.9)
[2022-06-22] MEDS: POTASSIUM CHLORIDE ORAL LIQUID 20 MEQ/15 ML PO SCH ×2 (09:23→22:23)
[2022-06-22] MEDS: AMINO ACIDS/PROTEIN HYDROLYS 30 ML LIQUID.PKT PO SCH ×3 (09:23→18:11)
[2022-06-22] MEDS: ENOXAPARIN NA (PORCINE) 40 MG/0.4 ML DISP.SYRIN SQ SCH (09:23)
[2022-06-22] MEDS: POLYETHYLENE GLYCOL (HEALTHYLAX) 3350 17 GM PACKET PO SCH ×2 (09:23→22:23)
[2022-06-22] MEDS: ASCORBIC ACID 250 MG TABLET (FP) PO SCH ×2 (09:24→22:24)
[2022-06-22] MEDS: MULTIVITAMINS (DAILY MVI) TABLET (FP) PO SCH (09:24)
[2022-06-22] MEDS: DEXTROSE 5%-0.45% SALINE 1,000 ML IV SCH (13:03)
[2022-06-22] MEDS ORDERED: metroNIDAZOLE 250 MG TABLET PO SCH (14:00)
[2022-06-22] MEDS ORDERED: CEFTAZIDIME PENTAHYDRATE 1 GM in DEXTROSE 5%-WATER - 50 ML IVPB SCH (18:00)
[2022-06-22] MEDS: SODIUM HYPOCHLORITE 0.25%- 473 ML BULK BOTTLE TP SCH (18:11)
[2022-06-23] MEDS: AMPICILLIN NA/SULBACTAM NA 1.5 GM in SODIUM CHLORIDE 100 ML IVPB SCH ×4 (02:57→23:23)
[2022-06-23] MEDS: SODIUM HYPOCHLORITE 0.25%- 473 ML BULK BOTTLE TP SCH (06:36)
[2022-06-23 09:16] LABS: BASO % 0.7 % (0-2.0); EOS % 2.6 % (0-4.5); HEMATOCRIT 37.8 % (35.4-49); HEMOGLOBIN 12.9 GM/dL (11.7-16.9); LYMPH % 32.4 % (8-40); MCH 31.8 pg (25.7-33.7); MCHC 34.1 g/dl (32.0-35.9); MEAN CELL VOLUME 93.2 fl (80-96); MEAN PLT VOLUME 9.2 fl (7.5-11.1); MONO % 7.1 % (3.8-10.2); NEUT % 57.2 % (42.8-82.8); PLATELET COUNT 139 10^3/uL (134-434); RBC 4.06 M/mm3 (4.00-5.60); RDW 14.7 % (11.9-15.9); WHITE BLOOD COUNT 6.8 K/mm3 (4.0-10.0)
[2022-06-23 09:38] LABS: CALCIUM 7.9 mg/dL (8.5-10.1)
[2022-06-23 09:40] LABS: PHOSPHOROUS 2.4 mg/dL (2.5-4.9)
[2022-06-23 09:41] LABS: CREATININE 0.5 mg/dL (0.55-1.3)
[2022-06-23 09:42] LABS: BILIRUBIN,TOTAL 0.7 mg/dL (0.2-1); TOT PROT 5.3 g/dl (6.4-8.2)
[2022-06-23 09:46] LABS: ALBUMIN 2.5 g/dl (3.4-5.0)
[2022-06-23] MEDS: MULTIVITAMINS (DAILY MVI) TABLET (FP) PO SCH (10:16)
[2022-06-23] MEDS: POLYETHYLENE GLYCOL (HEALTHYLAX) 3350 17 GM PACKET PO SCH ×3 (10:16→23:16)
[2022-06-23] MEDS: ASCORBIC ACID 250 MG TABLET (FP) PO SCH ×2 (10:16→23:17)
[2022-06-23] MEDS: ENOXAPARIN NA (PORCINE) 40 MG/0.4 ML DISP.SYRIN SQ SCH (10:16)
[2022-06-23] MEDS: POTASSIUM CHLORIDE ORAL LIQUID 20 MEQ/15 ML PO SCH ×2 (10:17→23:16)
[2022-06-23] MEDS: DEXTROSE 5%-0.45% SALINE 1,000 ML IV SCH (10:17)
[2022-06-23] MEDS: AMINO ACIDS/PROTEIN HYDROLYS 30 ML LIQUID.PKT PO SCH ×3 (10:17→17:14)
[2022-06-23] MEDS ORDERED: AMPICILLIN NA/SULBACTAM NA 1.5 GM VIAL ONE (10:21)
[2022-06-23] MEDS ORDERED: cefTAZidime PENTAHYDRATE 1 GM/50ML PRE-DOCKED (RESTRICTED TO ID) IVPB SCH (18:00)
[2022-06-23 22:21] VITALS: BP 101/58; PULSE 67; TEMP 97.4
== END 2022-06-24 01:27 | DRG 393 ==
LOC: JER 14:38 → JERBED 22:36 → J6S 06-20 23:58
PROVIDERS: ADMIT Internal Medicine; ATTEND Internal Medicine
DX: K63.89 Other specified diseases of intestine (principal); E43 Unspecified severe protein-calorie malnutrition; J69.0 Pneumonitis due to inhalation of food and vomit; L89.153 Pressure ulcer of sacral region, stage 3; K92.0 Hematemesis; N39.0 Urinary tract infection, site not specified; K59.81 Ogilvie syndrome; L89.312 Pressure ulcer of right buttock, stage 2; K56.609 Unspecified intestinal obstruction, unspecified as to partial versus complete obstruction; F03.90 Unspecified dementia, unspecified severity, without behavioral disturbance, psychotic disturbance, mood disturbance, and anxiety; I10 Essential (primary) hypertension; M62.461 Contracture of muscle, right lower leg; M62.462 Contracture of muscle, left lower leg; N40.0 Benign prostatic hyperplasia without lower urinary tract symptoms; K56.41 Fecal impaction; N31.2 Flaccid neuropathic bladder, not elsewhere classified; Z96.652 Presence of left artificial knee joint; E87.6 Hypokalemia; B96.20 Unspecified Escherichia coli [E. coli] as the cause of diseases classified elsewhere; B95.2 Enterococcus as the cause of diseases classified elsewhere; K21.9 Gastro-esophageal reflux disease without esophagitis; N31.9 Neuromuscular dysfunction of bladder, unspecified
CPT/HCPCS: 0241U-QW; 36415; 71045-TC-FY; 74018-TC-FY; 74019-TC-FY; 74177-TC; 80048; 80053; 81003; 83605; 83735; 84100; 84484; 85025; 85027; 85610; 85730; 86850; 86900; 86901; 87040; 87086; 87186; 93005; 93010; 99285-25; C9803-CS; U0003; U0005

== ENCOUNTER 2023-01-05 05:57 | Inpatient (IN) | payer OTHER, MEDICARE ==
[2023-01-05 06:47] LABS: EOS % 1.7 % (0-4.5); HEMOGLOBIN 15.3 GM/dL (11.7-16.9); MCH 31.9 pg (25.7-33.7); MEAN CELL VOLUME 93.8 fl (80-96); MEAN PLT VOLUME 8.8 fl (7.5-11.1); MONO % 9.5 % (3.8-10.2); NEUT % 61.8 % (42.8-82.8); PLATELET COUNT 158 10^3/uL (134-434); RDW 15.5 % (11.9-15.9); WHITE BLOOD COUNT 6.9 K/mm3 (4.0-10.0)
[2023-01-05 07:26] LABS: POTASSIUM 3.9 mmol/L (3.5-5.1)
[2023-01-05 07:28] LABS: ALBUMIN 3.6 g/dl (3.4-5.0)
[2023-01-05 07:31] LABS: CREATININE 0.8 mg/dL (0.55-1.3)
[2023-01-05 07:33] LABS: TOT PROT 6.8 g/dl (6.4-8.2)
[2023-01-05 08:01] LABS: EPI CELLS 28 /uL (0-25.1); HYALINE CASTS 5 /uL (0-3.1); PH,URINE 6.5 (5.0-8.0); URINE APPEARANCE CLOUDY; URINE BACTERIA >9,000 /uL (0-1359); URINE BILIRUBIN NEGATIVE (NEGATIVE); URINE COLOR YELLOW; URINE GLUCOSE (UA) NEGATIVE (NEGATIVE); URINE KETONE NEGATIVE (NEGATIVE); URINE LEUK ESTERASE 3+ (NEGATIVE); URINE NITRITE POSITIVE (NEGATIVE); URINE PROTEIN 2+ (NEGATIVE); URINE UROBILINOGEN 0.2 mg/dL (0.2-1.0); URINE WBC 3605 /uL (0-25.8)
[2023-01-05 08:18] LABS: URINE CRYSTALS CA OXALTE FEW /hpf; URINE RBC 67.2 /uL (0-23.9)
[2023-01-05] MEDS ORDERED: ACETAMINOPHEN 325 MG TABLET (FP) PO PRN (15:00)
[2023-01-05] MEDS: D5-1/2NS+20 MEQ KCL - 20 MEQ/1,000 ML INFUS.BAG IV SCH (16:00)
[2023-01-05] MEDS ORDERED: HEPARIN NA (PORCINE) 5,000 UNITS/ML 1ML VIAL ONE (20:53)
[2023-01-05] MEDS ORDERED: POLYETHYLENE GLYCOL (HEALTHYLAX) 3350 17 GM PACKET ONE (20:53)
[2023-01-05] MEDS: POLYETHYLENE GLYCOL (HEALTHYLAX) 3350 17 GM PACKET PO SCH (21:00)
[2023-01-05] MEDS: HEPARIN NA (PORCINE) 5,000 UNITS/ML 1ML VIAL SQ SCH (21:01)
[2023-01-06 02:22] VITALS: BMI 16.4
[2023-01-06 09:52] LABS: BASO % 0.8 % (0-2.0); EOS % 1.7 % (0-4.5); HEMATOCRIT 40.5 % (35.4-49); HEMOGLOBIN 13.6 GM/dL (11.7-16.9); LYMPH % 23.1 % (8-40); MCH 31.4 pg (25.7-33.7); MCHC 33.6 g/dl (32.0-35.9); MEAN CELL VOLUME 93.5 fl (80-96); MEAN PLT VOLUME 9.9 fl (7.5-11.1); MONO % 10.6 % (3.8-10.2); NEUT % 63.8 % (42.8-82.8); PLATELET COUNT 149 10^3/uL (134-434); RBC 4.33 M/mm3 (4.00-5.60); WHITE BLOOD COUNT 7.2 K/mm3 (4.0-10.0)
[2023-01-06 10:14] LABS: POTASSIUM 4.2 mmol/L (3.5-5.1)
[2023-01-06 10:17] LABS: BLOOD UREA NITROGEN 14.3 mg/dL (7-18); CALCIUM 8.5 mg/dL (8.5-10.1)
[2023-01-06 10:20] LABS: CREATININE 0.6 mg/dL (0.55-1.3)
[2023-01-06 10:22] LABS: BILIRUBIN,TOTAL 1.4 mg/dL (0.2-1); TOT PROT 5.9 g/dl (6.4-8.2)
[2023-01-06] MEDS: HEPARIN NA (PORCINE) 5,000 UNITS/ML 1ML VIAL SQ SCH ×2 (10:44→21:57)
[2023-01-06] MEDS: CEFTRIAXONE 1 GM in DEXTROSE 5%-WATER - 50 ML IVPB SCH (10:44)
[2023-01-06] MEDS: POLYETHYLENE GLYCOL (HEALTHYLAX) 3350 17 GM PACKET PO SCH ×3 (10:45→21:58)
[2023-01-06] MEDS: D5-1/2NS+20 MEQ KCL - 20 MEQ/1,000 ML INFUS.BAG IV SCH (14:15)
[2023-01-07] MEDS: POLYETHYLENE GLYCOL (HEALTHYLAX) 3350 17 GM PACKET PO SCH ×3 (06:45→21:59)
[2023-01-07] MEDS: MULTIVIT-MINERALS ORAL LIQUID PO SCH (10:43)
[2023-01-07] MEDS: CEFTRIAXONE 1 GM in DEXTROSE 5%-WATER - 50 ML IVPB SCH (10:43)
[2023-01-07] MEDS: HEPARIN NA (PORCINE) 5,000 UNITS/ML 1ML VIAL SQ SCH ×2 (10:43→21:59)
[2023-01-08] MEDS: POLYETHYLENE GLYCOL (HEALTHYLAX) 3350 17 GM PACKET PO SCH ×3 (05:33→21:18)
[2023-01-08] MEDS: MULTIVIT-MINERALS ORAL LIQUID PO SCH (09:24)
[2023-01-08] MEDS: CEFTRIAXONE 1 GM in DEXTROSE 5%-WATER - 50 ML IVPB SCH (09:24)
[2023-01-08] MEDS: HEPARIN NA (PORCINE) 5,000 UNITS/ML 1ML VIAL SQ SCH ×2 (09:25→21:18)
[2023-01-08] MEDS: MEMANTINE HCL 5 MG TABLET (UD) PO SCH ×2 (10:55→21:18)
[2023-01-08] MEDS: COLLAGENASE CLOSTRIDIUM HIST. 30 GRAMS TUBE TP SCH (11:24)
[2023-01-09] MEDS: POLYETHYLENE GLYCOL (HEALTHYLAX) 3350 17 GM PACKET PO SCH ×3 (05:25→21:24)
[2023-01-09 06:51] VITALS: RESP 18
[2023-01-09] MEDS: CEFTRIAXONE 1 GM in DEXTROSE 5%-WATER - 50 ML IVPB SCH (10:07)
[2023-01-09] MEDS: MULTIVIT-MINERALS ORAL LIQUID PO SCH (11:23)
[2023-01-09] MEDS: HEPARIN NA (PORCINE) 5,000 UNITS/ML 1ML VIAL SQ SCH ×2 (11:23→21:25)
[2023-01-09] MEDS: COLLAGENASE CLOSTRIDIUM HIST. 30 GRAMS TUBE TP SCH (11:23)
[2023-01-09] MEDS: MEMANTINE HCL 5 MG TABLET (UD) PO SCH ×2 (11:23→21:25)
[2023-01-09 21:50] VITALS: BP 119/71; PULSE 76; TEMP 98.2
== END 2023-01-09 22:15 | DRG 391 ==
LOC: JER 05:57 → JERBED 13:42 → J7W 01-06 01:37
PROVIDERS: ADMIT Internal Medicine; ATTEND Internal Medicine
DX: K59.81 Ogilvie syndrome (principal); E43 Unspecified severe protein-calorie malnutrition; L89.153 Pressure ulcer of sacral region, stage 3; N39.0 Urinary tract infection, site not specified; Z68.1 Body mass index [BMI] 19.9 or less, adult; F03.90 Unspecified dementia, unspecified severity, without behavioral disturbance, psychotic disturbance, mood disturbance, and anxiety; I10 Essential (primary) hypertension; N40.0 Benign prostatic hyperplasia without lower urinary tract symptoms; R33.9 Retention of urine, unspecified
CPT/HCPCS: 36415; 74018-TC-FY; 74176-TC; 80053; 81003; 83605; 83735; 84443; 85025; 87086; 87186; 87324; 87449; 99285-25; J1644

== ENCOUNTER 2023-03-13 03:01 | Inpatient (IN) | payer OTHER, MEDICARE ==
[2023-03-13 04:48] LABS: BASO % 0.7 % (0-2.0); EOS % 2.1 % (0-4.5); HEMATOCRIT 48.1 % (35.4-49); HEMOGLOBIN 16.4 GM/dL (11.7-16.9); LYMPH % 31.6 % (8-40); MCH 32.1 pg (25.7-33.7); MCHC 34.1 g/dl (32.0-35.9); MEAN CELL VOLUME 94.1 fl (80-96); MEAN PLT VOLUME 9.8 fl (7.5-11.1); MONO % 9.2 % (3.8-10.2); NEUT % 56.4 % (42.8-82.8); PLATELET COUNT 171 10^3/uL (134-434); RBC 5.11 M/mm3 (4.00-5.60); RDW 14.9 % (11.9-15.9); WHITE BLOOD COUNT 11.3 K/mm3 (4.0-10.0)
[2023-03-13 04:56] LABS: INR 1.03 (0.83-1.09)
[2023-03-13 04:58] LABS: ACTIVATED PTT 31.5 SECONDS (25.2-36.5)
[2023-03-13 05:08] LABS: POTASSIUM 3.7 mmol/L (3.5-5.1)
[2023-03-13 05:10] LABS: ALBUMIN 3.4 g/dl (3.4-5.0); BLOOD UREA NITROGEN 17.4 mg/dL (7-18); CALCIUM 8.9 mg/dL (8.5-10.1)
[2023-03-13 05:13] LABS: CREATININE 0.9 mg/dL (0.55-1.3)
[2023-03-13 05:15] LABS: TOT PROT 6.9 g/dl (6.4-8.2)
[2023-03-13 06:00] LABS: LACTIC ACID 2.9 mmol/L (0.4-2.0)
[2023-03-13] MEDS ORDERED: SODIUM CHLORIDE 0.9% 500 ML INFUS.BAG IV ONE (06:29)
[2023-03-13 08:19] LABS: EPI CELLS 9 /uL (0-25.1); HYALINE CASTS 3 /uL (0-3.1); PH,URINE 5.5 (5.0-8.0); URINE APPEARANCE TURBID; URINE BACTERIA 1837 /uL (0-1359); URINE BILIRUBIN NEGATIVE (NEGATIVE); URINE COLOR YELLOW; URINE GLUCOSE (UA) NEGATIVE (NEGATIVE); URINE KETONE TRACE (NEGATIVE); URINE LEUK ESTERASE 3+ (NEGATIVE); URINE NITRITE POSITIVE (NEGATIVE); URINE PROTEIN 2+ (NEGATIVE); URINE RBC 28 /uL (0-23.9); URINE WBC 11559 /uL (0-25.8)
[2023-03-13 08:35] LABS: URINE CRYSTALS NEGATIVE /hpf
[2023-03-13] MEDS: D5-1/2NS+20 MEQ KCL - 20 MEQ/1,000 ML INFUS.BAG IV SCH (11:52)
[2023-03-13 17:50] VITALS: BMI 16.0
[2023-03-13] MEDS: POLYETHYLENE GLYCOL (HEALTHYLAX) 3350 17 GM PACKET PO SCH (21:45)
[2023-03-13] MEDS: SENNOSIDES 8.6MG TABLET (FP) PO SCH (21:45)
[2023-03-13] MEDS: HEPARIN NA (PORCINE) 5,000 UNITS/ML 1ML VIAL SQ SCH (21:45)
[2023-03-13 22:22] VITALS: RESP 18
[2023-03-14] MEDS: MEMANTINE HCL 5 MG TABLET (UD) PO SCH ×3 (09:08→21:55)
[2023-03-14] MEDS: MULTIVIT-MINERALS ORAL LIQUID PO SCH (09:08)
[2023-03-14] MEDS: HEPARIN NA (PORCINE) 5,000 UNITS/ML 1ML VIAL SQ SCH ×2 (09:09→21:51)
[2023-03-14] MEDS: POLYETHYLENE GLYCOL (HEALTHYLAX) 3350 17 GM PACKET PO SCH ×3 (09:09→21:56)
[2023-03-14 09:26] LABS: BASO % 0.8 % (0-2.0); EOS % 3.1 % (0-4.5); HEMOGLOBIN 13.8 GM/dL (11.7-16.9); LYMPH % 31.9 % (8-40); MCH 32.1 pg (25.7-33.7); MCHC 34.5 g/dl (32.0-35.9); MEAN PLT VOLUME 9.5 fl (7.5-11.1); MONO % 8.9 % (3.8-10.2); NEUT % 55.3 % (42.8-82.8); PLATELET COUNT 138 10^3/uL (134-434); RDW 14.6 % (11.9-15.9)
[2023-03-14] MEDS ORDERED: ACETAMINOPHEN 325 MG TABLET (FP) PO PRN (09:35)
[2023-03-14 09:47] LABS: POTASSIUM 3.2 mmol/L (3.5-5.1)
[2023-03-14 09:52] LABS: BLOOD UREA NITROGEN 11.4 mg/dL (7-18); CALCIUM 8.3 mg/dL (8.5-10.1)
[2023-03-14 09:53] LABS: ALBUMIN 2.8 g/dl (3.4-5.0)
[2023-03-14 09:56] LABS: CREATININE 0.7 mg/dL (0.55-1.3)
[2023-03-14 09:57] LABS: BILIRUBIN,TOTAL 1.2 mg/dL (0.2-1); TOT PROT 5.6 g/dl (6.4-8.2)
[2023-03-14] MEDS ORDERED: [UNRECOGNIZED DRUG - OTHER] PO SCH (10:00)
[2023-03-14] MEDS ORDERED: MULTIVIT MIN PO SCH (10:00)
[2023-03-14] MEDS ORDERED: MEMANTINE HCL PO SCH (10:00)
[2023-03-14] MEDS ORDERED: LUTEIN PO SCH (10:00)
[2023-03-14] MEDS ORDERED: FOLIC ACID PO SCH (10:00)
[2023-03-14] MEDS: D5-1/2NS+20 MEQ KCL - 20 MEQ/1,000 ML INFUS.BAG IV SCH (12:03)
[2023-03-14] MEDS ORDERED: SODIUM PHOSPHATE/NA BIPHOS 133 ML ENEMA RC ONE (14:39)
[2023-03-14] MEDS: SENNOSIDES 8.6MG TABLET (FP) PO SCH ×2 (21:50→21:56)
[2023-03-15] MEDS: HEPARIN NA (PORCINE) 5,000 UNITS/ML 1ML VIAL SQ SCH ×2 (09:39→21:29)
[2023-03-15] MEDS: MEMANTINE HCL 5 MG TABLET (UD) PO SCH ×2 (09:39→21:29)
[2023-03-15] MEDS: MULTIVIT-MINERALS ORAL LIQUID PO SCH (09:40)
[2023-03-15] MEDS: POLYETHYLENE GLYCOL (HEALTHYLAX) 3350 17 GM PACKET PO SCH ×2 (09:40→21:29)
[2023-03-15] MEDS: D5-1/2NS+20 MEQ KCL - 20 MEQ/1,000 ML INFUS.BAG IV SCH ×2 (17:40→17:42)
[2023-03-15] MEDS: SENNOSIDES 8.6MG TABLET (FP) PO SCH (21:29)
[2023-03-16 09:26] LABS: BASO % 0.5 % (0-2.0); EOS % 1.8 % (0-4.5); HEMATOCRIT 39.7 % (35.4-49); HEMOGLOBIN 13.7 GM/dL (11.7-16.9); LYMPH % 26.3 % (8-40); MCH 32.1 pg (25.7-33.7); MCHC 34.5 g/dl (32.0-35.9); MEAN PLT VOLUME 9.4 fl (7.5-11.1); MONO % 8.1 % (3.8-10.2); NEUT % 63.3 % (42.8-82.8); PLATELET COUNT 109 10^3/uL (134-434); RBC 4.27 M/mm3 (4.00-5.60); RDW 14.6 % (11.9-15.9); WHITE BLOOD COUNT 8.1 K/mm3 (4.0-10.0)
[2023-03-16 09:41] LABS: POTASSIUM 3.2 mmol/L (3.5-5.1)
[2023-03-16 09:45] LABS: ALBUMIN 2.5 g/dl (3.4-5.0); CALCIUM 8.4 mg/dL (8.5-10.1); MAGNESIUM 1.8 mg/dL (1.8-2.4)
[2023-03-16 09:48] LABS: CREATININE 0.6 mg/dL (0.55-1.3)
[2023-03-16 09:50] LABS: TOT PROT 5.2 g/dl (6.4-8.2)
[2023-03-16] MEDS: MEMANTINE HCL 5 MG TABLET (UD) PO SCH ×2 (10:35→21:41)
[2023-03-16] MEDS: HEPARIN NA (PORCINE) 5,000 UNITS/ML 1ML VIAL SQ SCH ×2 (10:35→21:41)
[2023-03-16] MEDS: POLYETHYLENE GLYCOL (HEALTHYLAX) 3350 17 GM PACKET PO SCH ×2 (10:35→21:41)
[2023-03-16] MEDS: MULTIVIT-MINERALS ORAL LIQUID PO SCH (10:35)
[2023-03-16] MEDS ORDERED: POTASSIUM CHLORIDE ORAL LIQUID 20 MEQ/15 ML PO ONE ×2 (11:16→15:00)
[2023-03-16] MEDS: D5-1/2NS+20 MEQ KCL - 20 MEQ/1,000 ML INFUS.BAG IV SCH (15:17)
[2023-03-16] MEDS: MULTIVITAMINS (DAILY MVI) TABLET (FP) PO SCH (16:40)
[2023-03-16] MEDS: SENNOSIDES 8.6MG TABLET (FP) PO SCH (21:40)
[2023-03-16] MEDS: ASCORBIC ACID 500 MG TABLET (FP) PO SCH (21:40)
[2023-03-17 08:43] LABS: BASO % 0.5 % (0-2.0); EOS % 2.5 % (0-4.5); HEMATOCRIT 37.8 % (35.4-49); HEMOGLOBIN 12.8 GM/dL (11.7-16.9); LYMPH % 33.7 % (8-40); MCH 32.3 pg (25.7-33.7); MCHC 33.9 g/dl (32.0-35.9); MEAN CELL VOLUME 95.1 fl (80-96); MEAN PLT VOLUME 9.4 fl (7.5-11.1); MONO % 8.6 % (3.8-10.2); NEUT % 54.7 % (42.8-82.8); PLATELET COUNT 109 10^3/uL (134-434); RBC 3.97 M/mm3 (4.00-5.60); RDW 14.6 % (11.9-15.9); WHITE BLOOD COUNT 7.3 K/mm3 (4.0-10.0)
[2023-03-17] MEDS: MULTIVITAMINS (DAILY MVI) TABLET (FP) PO SCH (09:14)
[2023-03-17] MEDS: POLYETHYLENE GLYCOL (HEALTHYLAX) 3350 17 GM PACKET PO SCH ×2 (09:14→21:36)
[2023-03-17] MEDS: MEMANTINE HCL 5 MG TABLET (UD) PO SCH ×2 (09:15→21:35)
[2023-03-17] MEDS: ASCORBIC ACID 500 MG TABLET (FP) PO SCH ×2 (09:15→21:35)
[2023-03-17] MEDS: MULTIVIT-MINERALS ORAL LIQUID PO SCH (09:15)
[2023-03-17] MEDS: HEPARIN NA (PORCINE) 5,000 UNITS/ML 1ML VIAL SQ SCH ×2 (09:15→21:36)
[2023-03-17 09:32] LABS: CALCIUM 7.8 mg/dL (8.5-10.1)
[2023-03-17 09:33] LABS: ALBUMIN 2.4 g/dl (3.4-5.0); BLOOD UREA NITROGEN 8.5 mg/dL (7-18)
[2023-03-17 09:36] LABS: CREATININE 0.7 mg/dL (0.55-1.3)
[2023-03-17 09:38] LABS: BILIRUBIN,TOTAL 0.9 mg/dL (0.2-1)
[2023-03-17] MEDS: D5-1/2NS+20 MEQ KCL - 20 MEQ/1,000 ML INFUS.BAG IV SCH (15:09)
[2023-03-17] MEDS: SENNOSIDES 8.6MG TABLET (FP) PO SCH (21:36)
[2023-03-18] MEDS: HEPARIN NA (PORCINE) 5,000 UNITS/ML 1ML VIAL SQ SCH ×2 (09:10→21:32)
[2023-03-18] MEDS: MEMANTINE HCL 5 MG TABLET (UD) PO SCH ×2 (09:11→21:32)
[2023-03-18] MEDS: ASCORBIC ACID 500 MG TABLET (FP) PO SCH ×2 (09:11→21:32)
[2023-03-18] MEDS: MULTIVIT-MINERALS ORAL LIQUID PO SCH (09:11)
[2023-03-18] MEDS: POLYETHYLENE GLYCOL (HEALTHYLAX) 3350 17 GM PACKET PO SCH ×2 (09:11→21:32)
[2023-03-18 14:41] VITALS: TEMP 97.2
[2023-03-18] MEDS: SENNOSIDES 8.6MG TABLET (FP) PO SCH (21:32)
[2023-03-18 22:39] VITALS: BP 118/69; PULSE 92
== END 2023-03-18 23:55 | DRG 391 ==
LOC: JER 03:01 → JERBED 05:32 → OBSVTOIN 10:50 → J6S 17:13
PROVIDERS: ADMIT Internal Medicine; ATTEND Internal Medicine
PROC: 0D9P70Z Drainage of Rectum with Drainage Device, Via Natural or Artificial Opening (ICD-10-PCS; principal; 2023-03-13)
DX: K59.81 Ogilvie syndrome (principal); E43 Unspecified severe protein-calorie malnutrition; L89.153 Pressure ulcer of sacral region, stage 3; K56.7 Ileus, unspecified; N39.0 Urinary tract infection, site not specified; Z68.1 Body mass index [BMI] 19.9 or less, adult; I10 Essential (primary) hypertension; N40.0 Benign prostatic hyperplasia without lower urinary tract symptoms; D64.9 Anemia, unspecified; F03.90 Unspecified dementia, unspecified severity, without behavioral disturbance, psychotic disturbance, mood disturbance, and anxiety; K21.9 Gastro-esophageal reflux disease without esophagitis; K59.09 Other constipation; N31.9 Neuromuscular dysfunction of bladder, unspecified; D69.6 Thrombocytopenia, unspecified; Z96.652 Presence of left artificial knee joint; B96.5 Pseudomonas (aeruginosa) (mallei) (pseudomallei) as the cause of diseases classified elsewhere; Z86.73 Personal history of transient ischemic attack (TIA), and cerebral infarction without residual deficits
CPT/HCPCS: 36415; 71045-TC-FY; 74018-TC-FY; 74177-TC; 80053; 81003; 82272; 83605; 83690; 83735; 84484; 85025; 85610; 85730; 86850; 86900; 86901; 87045; 87046; 87086; 87186; 87635; 93005; 93010; 97161-GP; 99285-25; G0378; J1644; Q9967